=== PATIENT | female | born 1965 | race Hispanic/Latino ===

== ENCOUNTER → 2021-09-20 | Outpatient (CLI) | payer MEDICARE, OTHER | LOC: MAMMO 13:30 | PROVIDERS: ATTEND Internal Medicine | DX: Z12.31 Encounter for screening mammogram for malignant neoplasm of breast (principal) | CPT/HCPCS: 77067 ==

== ENCOUNTER → 2021-10-18 | Outpatient (CLI) | payer MEDICARE | LOC: RAD 08:36 | PROVIDERS: ATTEND Internal Medicine | DX: J41.0 Simple chronic bronchitis (principal) | CPT/HCPCS: 71046 ==

== ENCOUNTER → 2022-08-17 | Outpatient (CLI) | payer MEDICARE ==
[~2022-08-17] MED LIST: IOPAMIDOL 370 MG/ML 100 ML INFUS..BTL INJ ONE
== END ==
LOC: CT 09:53
PROVIDERS: ATTEND Internal Medicine
DX: R10.10 Upper abdominal pain, unspecified (principal)
CPT/HCPCS: 74160; Q9967

== ENCOUNTER 2023-02-18 12:51 | Emergency (ER) | payer MEDICARE, OTHER ==
[~2023-02-18] VITALS: Ht 157.5 cm; Wt 86.2 kg
[2023-02-18 15:03] VITALS: BP 142/75; PULSE 78; RESP 18; O2SAT 100
== END 2023-02-18 15:09 | disposition home or self-care (01) ==
LOC: VACCPMC 13:05
DX: S00.83XA Contusion of other part of head, initial encounter (principal); M25.561 Pain in right knee; W18.39XA Other fall on same level, initial encounter; Y93.01 Activity, walking, marching and hiking; Y92.531 Health care provider office as the place of occurrence of the external cause
CPT/HCPCS: 70450; 72125; 99283